=== PATIENT | male | born 1925 | race African-American/Black ===

== ENCOUNTER 2016-11-17 14:49 | Inpatient (IN) ==
--- NOTE | 2016-11-17 16:44 | Emergency Department Note ---
Disposition Clinical Impression: Heart block AV second degree Disposition: Admitted As Inpatient Condition: Good Recheck wound or abnormal lab - General Chief Complaint: ED Recheck/Abnormal Lab/Rx Stated Complaint: recheck Time Seen by Provider: 11/17/16 15:08 Source: patient, EMS Limitations: no limitations Nursing Notes Reviewed: Yes Vital Signs Reviewed: Yes - History of Present Illness HPI Narrative: Patient comes complaint of abnormal Holter monitor. Per report patient also monitor place due to dizziness. [facility] episodes of complete heart block. Patient of the currently denies any symptoms. Patient denies shortness of breath denies chest pain. Patient denies vision changes associated with this. Patient denies numbness or tingling. Patient states he feels well like to go home. - Related Data Home Medications Medication Instructions Recorded Confirmed Alendronate Sodium [Fosamax] 70 mg PO QWEEK 11/17/16 11/17/16 Capsaicin 0.025% [Trixaicin] 1 appl TP BID 11/17/16 11/17/16 Cholecalciferol (Vitamin D3) 1,000 unit PO DAILY 11/17/16 11/17/16 [Vitamin D] Naproxen [Naprosyn] 500 mg PO BID 11/17/16 11/17/16 Allergies Allergy/AdvReac Type Severity Reaction Status Date / Time Penicillins [PCN] Allergy Unknown Swelling Verified 12/08/15 11:31 of Lip/Tongue/Throat All systems ED: reviewed and negative except as stated. Past Medical History - Past Medical History Source: patient Medical history: Reports: cancer, CVA, hypertension, seizures Psychiatric history: Reports: no psych history - Social History Smoking Status: Current every day smoker Smokeless Tobacco Status: No Alcohol use: Reports: occasionally Drug use: Reports: none Physical Exam - General Limitations: no limitations General appearance: alert, in no apparent distress - Head Head exam: atraumatic, normocephalic, normal inspection - Eye Eye exam: Present: normal appearance, PERRL, EOMI - ENT ENT exam: normal exam, normal oropharynx, mucous membranes moist - Neck Neck exam: Present: normal inspection, full ROM, trachea midline - Chest Chest inspection: Present: normal inspection, symmetric chest wall rise - Respiratory Respiratory exam: Present: normal lung sounds bilaterally - Cardiovascular Cardiovascular exam: Present: regular rate, normal rhythm, normal heart sounds - Abdominal Exam Abdominal exam: Present: soft, Non-Tender. Absent: tenderness, distention, guarding, rebound, rigidity - Extremities Exam Extremities exam: Present: normal inspection, full ROM. Absent: tenderness, pedal edema - Back Exam Back exam: Present: normal inspection, full ROM. Absent: tenderness - Neurological Exam Neurological exam: Present: alert, oriented X3 - Psychiatric Psychiatric exam: Present: normal affect, normal mood - Skin Skin exam: Present: warm, dry, intact, normal color Course Vital Signs Temperature 98.1 F 11/17/16 14:56 Pulse Rate 78 11/17/16 14:56 Respiratory Rate 16 11/17/16 14:56 Blood Pressure 171/117 11/17/16 14:56 O2 Sat by Pulse Oximetry 100 11/17/16 14:56 Temperature 98.1 F 11/17/16 14:56 Pulse Rate 56 11/17/16 18:00 Respiratory Rate 16 11/17/16 18:00 Blood Pressure 138/74 11/17/16 18:00 O2 Sat by Pulse Oximetry 100 11/17/16 18:00 Oxygen Delivery Oxygen Delivery Room Air Recheck wound or abnormal lab - Lab Data Lab results reviewed: Yes I reviewed the patient's lab results. Result diagrams: 11/17/16 16:41 11/17/16 16:41 Lab Results 11/17/16 11/17/16 11/17/16 Range/Units 16:41 16:41 16:41 WBC 10.4 (4.3-11.1) K/mcL RBC 4.84 (4.19-5.50) M/mcL Hgb 13.8 (12.9-16.9) g/dL Hct 42.6 (37.5-50.1) % MCV 88.0 (83.0-100.0) fL MCH 28.5 (28.0-33.3) pg MCHC 32.4 (31.6-35.5) g/dL RDW 14.0 (11.5-14.5) % Plt Count 215 (140-400) K/mcL MPV 11.1 (9.4-12.4) fL Immature Gran % 0.2 (0-4) % Seg Neutrophils % 57.5 % Lymphocytes % 29.5 % Monocytes % 9.8 % Eosinophils % 2.3 % Basophils % 0.7 % Neutrophils # 6.0 (1.6-8.9) K/mcL Lymphocytes # 3.1 (0.6-4.6) K/mcL Monocytes # 1.0 (0.0-1.3) K/mcL Eosinophils # 0.2 (0.0-0.6) K/mcL Basophils # 0.1 (0.0-0.2) K/mcL APTT 32.7 (26.0-36.0) Seconds Sodium 140 (136-145) mEq/L Potassium 4.2 (3.5-4.5) mEq/L Chloride 107 (98-109) mEq/L Carbon Dioxide 24 (19-29) mEq/L BUN 14 (8-26) mg/dL Creatinine 1.17 (0.72-1.25) mg/dL Est GFR ( Amer) > 60 (> 60) Est GFR (Non-Af Amer) 59 L (> 60) BUN/Creatinine Ratio 12 (6-26) Glucose 103 H (70-99) mg/dL Calculated Osmolality 291 (280-300) Calcium 9.7 (8.6-10.8) mg/dL Total Bilirubin 0.6 (0.2-1.2) mg/dL AST 20 (5-34) Units/L ALT 16 (0-55) Units/L Alkaline Phosphatase 91 (38-126) Units/L Troponin I (0-0.03) ng/mL Serum Total Protein 7.7 (6.0-8.3) g/dL Albumin 3.9 (3.5-5.0) g/dL Globulin 3.8 H (2.4-3.5) g/dL Albumin/Globulin Ratio 1.0 L (1.1-2.2) 11/17/16 Range/Units 16:41 WBC (4.3-11.1) K/mcL RBC (4.19-5.50) M/mcL Hgb (12.9-16.9) g/dL Hct (37.5-50.1) % MCV (83.0-100.0) fL MCH (28.0-33.3) pg MCHC (31.6-35.5) g/dL RDW (11.5-14.5) % Plt Count (140-400) K/mcL MPV (9.4-12.4) fL Immature Gran % (0-4) % Seg Neutrophils % % Lymphocytes % % Monocytes % % Eosinophils % % Basophils % % Neutrophils # (1.6-8.9) K/mcL Lymphocytes # (0.6-4.6) K/mcL Monocytes # (0.0-1.3) K/mcL Eosinophils # (0.0-0.6) K/mcL Basophils # (0.0-0.2) K/mcL APTT (26.0-36.0) Seconds Sodium (136-145) mEq/L Potassium (3.5-4.5) mEq/L Chloride (98-109) mEq/L Carbon Dioxide (19-29) mEq/L BUN (8-26) mg/dL Creatinine (0.72-1.25) mg/dL Est GFR ( Amer) (> 60) Est GFR (Non-Af Amer) (> 60) BUN/Creatinine Ratio (6-26) Glucose (70-99) mg/dL Calculated Osmolality (280-300) Calcium (8.6-10.8) mg/dL Total Bilirubin (0.2-1.2) mg/dL AST (5-34) Units/L ALT (0-55) Units/L Alkaline Phosphatase (38-126) Units/L Troponin I 0.01 (0-0.03) ng/mL Serum Total Protein (6.0-8.3) g/dL Albumin (3.5-5.0) g/dL Globulin (2.4-3.5) g/dL Albumin/Globulin Ratio (1.1-2.2) - Radiology Data Radiology results reviewed: Yes I reviewed the patient's radiology results. Chest X-Ray 11/17/16 15:31 IMPRESSION: 1. Lower lung volumes with bibasilar atelectasis. 2. Stable cardiomegaly. D/ / 11/17/2016 16:47:23 Shireen Jerry MD / ander Interpreting Provider: Shireen Jerry MD - EKG Data EKG attestation: Yes I reviewed and interpreted this EKG. EKG results narrative: Mobitz II, Type II Critical Care Time Total Critical Care Time: 30 Attestation: Chest X-Ray 11/17/16 15:31
[2016-11-17 16:59] LABS: Basophils # 0.1 K/mcL (0.0-0.2); Basophils % 0.7 %; Eosinophils # 0.2 K/mcL (0.0-0.6); Eosinophils % 2.3 %; Hematocrit 42.6 % (37.5-50.1); Hemoglobin 13.8 g/dL (12.9-16.9); Immature Granulocytes % 0.2 % (0-4); Lymphocytes # 3.1 K/mcL (0.6-4.6); Lymphocytes % 29.5 %; Mean Corpuscular HGB Conc 32.4 g/dL (31.6-35.5); Mean Corpuscular Hemoglobin 28.5 pg (28.0-33.3); Mean Platelet Volume 11.1 fL (9.4-12.4); Monocytes % 9.8 %; Platelet Count 215 K/mcL (140-400); Red Blood Count 4.84 M/mcL (4.19-5.50); Segmented Neutrophils % 57.5 %
[2016-11-17 17:06] LABS: Alanine Aminotransferase 16 Units/L (0-55); Albumin 3.9 g/dL (3.5-5.0); Alkaline Phosphatase 91 Units/L (38-126); Aspartate Amino Transferase 20 Units/L (5-34); BUN/Creatinine Ratio 12 (6-26); Bilirubin,Total 0.6 mg/dL (0.2-1.2); Blood Urea Nitrogen 14 mg/dL (8-26); Calcium 9.7 mg/dL (8.6-10.8); Carbon Dioxide 24 mEq/L (19-29); Chloride 107 mEq/L (98-109); Globulin 3.8 g/dL (2.4-3.5); Glucose 103 mg/dL (70-99); Osmolality,Calculated 291 (280-300); Potassium 4.2 mEq/L (3.5-4.5); Sodium 140 mEq/L (136-145); Total Protein 7.7 g/dL (6.0-8.3); eGFR For African Americans > 60 (> 60); eGFR For Non-African Americans 59 (> 60)
[2016-11-17 19:43] LABS: Bilirubin,Urine Negative (Negative); Blood,Urine Negative (Negative); Clarity,Urine Clear (Clear); Color,Urine Yellow (Yellow); Glucose,Urine (UA) Normal (Normal); Ketones,Urine Negative (Negative); Leukocyte Esterase,Urine Negative (Negative); Nitrite,Urine Negative (Negative); Protein,Urine Negative (Neg-Trace); Specific Gravity,Urine 1.015 (1.010-1.025); Urobilinogen,Urine Normal (Normal)
[2016-11-17] MEDS ORDERED: *HR* Promethazine 25 MG/ML VIAL IVP PRN (20:02)
[2016-11-17] MEDS ORDERED: Naloxone 0.4 MG/ML INJ IVP PRN (20:02)
[2016-11-17] MEDS ORDERED: MOM Conc 10 ML UD.LIQ PO PRN (20:02)
[2016-11-17] MEDS ORDERED: *HR* OxyCODONE Immed Rel 5 MG TABLET PO PRN (20:02)
[2016-11-17] MEDS ORDERED: *HR* Enoxaparin 30 MG/0.3 ML SYRINGE SQ STA (20:02)
[2016-11-17] MEDS ORDERED: Mag Hydrox/Al Hydrox/Simeth 30 ML UDC PO PRN (20:02)
[2016-11-17] MEDS ORDERED: *HR* Morphine 2 MG/ML SYRINGE IVP PRN (20:02)
[2016-11-17] MEDS ORDERED: Acetaminophen 325 MG TABLET PO PRN (20:02)
[2016-11-17] MEDS ORDERED: Albuterol 2.5 MG/3 ML NEBULIZER IH PRN (20:09)
[2016-11-17] MEDS ORDERED: *HR* Metoprolol 5 MG/5 ML VIAL IVP PRN (20:09)
[2016-11-17] MEDS ORDERED: Aspirin 81 MG TAB.CHEW PO ONE (20:09)
[2016-11-17] MEDS ORDERED: Nitroglycerin 0.4 MG TAB.SUBL SL PRN (20:09)
[2016-11-17] MEDS ORDERED: 0.9 % Sodium Chloride 1,000 ML IVC SCH (20:15)
[2016-11-17] MEDS ORDERED: Benzonatate 100 MG CAPSULE PO PRN (20:16)
--- NOTE | 2016-11-17 20:21 | Internal Med History&Physical ---
Date of Encounter: 11/17/16 Time of Encounter: 20:00 Assessment and Plan (1) Mobitz type II atrioventricular block Current visit: Yes Status: Acute . (2) Pre-syncope Current visit: Yes Status: Acute . (3) Old cerebrovascular accident (CVA) without late effect Current visit: Yes Status: Chronic . (4) History of seizures Current visit: Yes Status: Chronic . (5) Hypertension Current visit: Yes Status: Chronic . Qualifiers: Hypertension type: essential hypertension Qualified Code(s): I10 - Essential (primary) hypertension (6) Nicotine dependence with nicotine-induced disorder Current visit: Yes Status: Chronic . Qualifiers: Nicotine product type: cigarettes Qualified Code(s): F17.219 - Nicotine dependence, cigarettes, with unspecified nicotine-induced disorders (7) Hypertension, accelerated with heart disease, without CHF Current visit: Yes Status: Acute . (8) Heart block AV second degree Current visit: Yes Status: Acute . (9) Dyslipidemia Current visit: Yes Status: Chronic . (10) Mild cognitive disorder Current visit: Yes Status: Chronic . (11) Age-related physical debility Current visit: Yes Status: Chronic . (12) CAD (coronary artery disease) Current visit: Yes Status: Chronic . Qualifiers: Coronary Disease-Associated Artery/Lesion type: [place] artery [place] vs. transplanted heart: [place] heart Associated angina: with stable angina Qualified Code(s): I25.118 - Atherosclerotic heart disease of [place] coronary artery with other forms of angina pectoris Internal Medicine - H&P: HPI Chief complaint: Presyncope. Abnormal Holter monitor. Admitted From: Emergency Dept Plans for Post Hospital Care: Home History of present illness: Mr. De La Cruz is a 89 year old male [facility] patient with history significant for old CVA, CAD, hypertension, hyperlipidemia, osteoarthritis, osteoporosis, vitamin D deficiency, H/O seizure disorder, H/O traumatic brain injury/LOC, DDD of the spine/low back pain, hemorrhoidal disease, chr constipation/obstipation, paroxysmal arrhythmias unspecified/ AV block second-degree, H/O TIAs, cognitive disorder unspecified, nicotine dependency The patient was visited and interviewed and examined. The patient is admitted to [facility] via the emergency department as a referral from the [facility]. The patient arrives via EMS services from home at the AL's request. The patient had recently underwent Holter monitor evaluation for unspecified paroxysmal arrhythmias associated with presyncopal complaints. The event Holter monitor captured 28 episodes of "complete heart block"/atrioventricular block. Sinus pauses lasting a total of 4 minutes was captured. Heart rates as low as 29 bpm also captured. This was defined to be Mobitz type II atrioventricular block and impending, potential complete heart block. Patient denied any symptoms during the period of Holter study. He denied chest pain syncopal or presyncopal platelets perceived bradycardia or or palpitations or irregular heartbeats PND orthopnea or edema. He denied any upper respiratory complaints cough, shortness severe dyspnea at rest or with exertion. He denied any acute changes in vision slurring of speech lateral weakness paresthesias operation in the status or mood. Denies any ongoing cardiovascular medications denies any recreational sedatives or excesses and dietary stimulants or therapies.. Findings in the ED: Temperature 98.1 pulse 56-78 respirations 16 BP 138-171/74-117 O2 saturation 100% room air. WBC 10.4 hemoglobin 13.8 platelets 215,000. Differential normal. PTT 32.7. Metabolic panel normal. BUN 14 creatinine 1.17 GFR 59. Glucose 103 osmolality 291. Troponin 0.01. EKG Mobitz type II atrioventricular block. Sinus bradycardia at a rate of 54 bpm. Markedly left axis deviation. Possible age-indeterminate anterior wall injury with poor R-wave progression. Chest x-ray demonstrates low lung volumes with bibasilar atelectasis. Stable enlargement of the cardiomediastinal silhouette. Cardiomegaly. No focal consolidation or pleural effusion edema or pneumothorax. Degenerative changes throughout the spine noted. Preliminary impression suggests symptomatic, cardiac arrhythmias found to be Mobitz type II atrioventricular block with associated episodes of sinus pauses worrisome for impending complete heart block, as captured on event Holter monitor. The patient presents increased risk for further acute clinical decline and morbidity given his advanced age, presenting chief complaint, clinical findings and comorbidities. Workup and treatments will proceed comprehensively. Cumulative laboratory and radiographic data base was reviewed, considered and discussed. Pertinent ancillary medical records including [facility], PCI and [facility] documentation, when available, was reviewed and considered. Given the patient's presenting concerns, past medical history, clinical findings and symptoms, he is admitted at this time will undergo further evaluation and disposition. Orders were written as per the computerized physician eating disorder psychologist system.......................................................................... .................... Consultative opinion and will be sought as clinical circumstances justify. Initial consultative opinion has been requested with cardiology. Pain management needs will be addressed. Laboratory and radiographic data base will be updated as appropriate. Studies include: trending of cardiac injury panels, BNP, metabolic and hematologic panel , magnesium, phosphorus, ionized calcium, thyroid panel, lipid profile, A1c, C- peptide, CRP, sedimentation rate, blood gas, UDS, coagulation profiles, U/A, lactic acid, serologies, etc. Precautions: Aspiration, fall, delirium protocol/surveillance initiated. Telemetry with continuous hemodynamic monitoring and pulse oximetry initiated. Orthostatic vital signs. Intravenous dopamine drip for maintenance of controlled heart rate rate and blood pressure pending formal cardiology interventions. Special studies: CT chest, chest x-ray, telemetry, EKG, echocardiogram. Pulmonary toilet: Incentive spirometry, aerosol bronchodilator, mucolytic, antitussive, supplemental oxygen. When necessary corticosteroid therapy. When necessary CPAP/BiPAP supplemental oxygen delivery. Aerosol Mucom[place] therapy may be employed. Fluid and electrolyte repletion efforts will proceed. Careful attention to fluid balance and renal recovery will be emphasized. Avoidance of nephrotoxic exposure and adverse drug drug interaction in the setting of impaired renal function will be monitored closely. Correction of metabolic and acid-base deficits will be emphasized. Acute coronary syndrome protocol/surveillance initiated. DVT and PUD prophylaxis initiated: PPI therapy, intermittent pneumatic cuffs. Subcutaneous heparin/Lovenox. Early ambulation will be encouraged. Immunization updates recommended. Influenza and pneumococcal vaccinations as part of ongoing preventative healthcare recommendations strongly recommended. Smoking cessation counseling briefly addressed. Patient accepts nicotine substitution during this hospitalization. Advanced care directive discussion briefly addressed. Patient does not declare any healthcare restrictions at this time. Cardiovascular risk appraisal and cardiovascular risk reduction efforts will be emphasized. Physical and occupational therapy may be counseled to evaluate/assess patient's functional capacity and progress mobility if circumstances justify. Outpatient medication schedules will be reviewed, confirmed and facilitated as appropriate. Reconciliation of home treatments including adjustments, substitutions and reintroduction into the treatment regimen will address necessary maintenance therapies for chronic pre-existing medical conditions. Plan of care has been reviewed and discussed in detail with the patient. Questions addressed. Hospital course is dependent upon collective clinical findings, treatment response and potential consultative interventions. Patient is at risk for further acute clinical decline and debility due to his advanced age, presenting chief complaint, clinical findings and comorbid conditions. Condition is serious. Prognosis is cautiously optimistic. CODE STATUS is full. Past Med Surg Social Fam HX - Past Medical History Source: old records reviewed Medical history: arthritis, atrial fibrillation (Paroxysmal arrhythmia unspecified. Second-degree atrioventricular block.), cancer, coronary artery disease, CVA, dementia (Cognitive disorder unspecified.), hyperlipidemia, hypertension, osteoporosis (Degenerative disc disease of the spine. Intravertebral disc disease of the spine/back pain.), seizures, TIA, other ( Plantar fasciitis fibromatosis. Congenital pes planus. Hearing loss.) Psychiatric history: no psych history - Past Surgical History Surgical History: other - Social History Smoking Status: Current every day smoker Smokeless Tobacco Status: No Alcohol use: occasionally Drug use: none Activity Level: Independent ambulation, Mostly sedentary Recent Out of Country Travel Within the Last 8 Weeks: No Exposure or Possible Exposure to Illness During Travel: No - Family History Father Living Status: Age at : 80 Cause of : Heart Attack Hx Family Cardiac Disorders: Yes (Heart attack) Hx Family Respiratory Disorders: No Hx Family Cancer: No Hx Family GI Disorders: No Hx Family Genitourinary Disorders: No Hx Family Endocrine Disorder: No Hx Family Musculoskeletal Disorders: No Hx Family Neuromuscular Disorders: No Hx Family Neurologic Disorders: No Hx Family HEENT Disorders: No Hx Family Autoimmune Disorders: No Hx Family Reproductive Disorders: No Hx Family Psychosocial Disorders: No Hx Family Medical Disorders: No Internal Medicine - H&P: Meds Alendronate Sodium [Fosamax] 70 mg PO QWEEK 11/17/16 [History] Capsaicin 0.025% [Trixaicin] 1 appl TP BID 11/17/16 [History] Cholecalciferol (Vitamin D3) [Vitamin D] 1,000 unit PO DAILY 11/17/16 [History] Naproxen [Naprosyn] 500 mg PO BID 11/17/16 [History] Allergies Penicillins [PCN] Allergy (Unknown, Verified 12/08/15 11:31) Swelling of Lip/Tongue/Throat All Systems PM: A 10-system review of systems was performed and is negative for pertinent findings except as documented above in the HPI. - Constitutional Constitutional: as per HPI, falls, no chills, no fever(s), no night sweats - EENT Eyes: as per HPI, no change in vision, no discharge, no pain, no photophobia Ears: as per HPI, no ear discharge, no ear pain, no tinnitus Nose, mouth and throat: as per HPI, no dysphagia, no nasal discharge, no neck pain, no sore throat - Cardiovascular Cardiovascular ROS IM: as per HPI, irregular heart rhythm, syncope, no chest pain, no diaphoresis, no dyspnea, no edema, no lightheadedness, no palpitations - Respiratory Respiratory: as per HPI, dyspnea, dyspnea on exertion, no cough, no wheezing, no excessive phlegm production - Gastrointestinal Gastrointestinal: as per HPI, no abdominal pain, no diarrhea, no hematemesis, no hematochezia, no melena, no nausea, no vomiting - Genitourinary Genitourinary ROS male: as per HPI, no difficulty urinating, no dysuria, no hematuria - Musculoskeletal Musculoskeletal ROS IM: as per HPI, no numbness, no tingling - Integumentary Integumentary IM: as per HPI, no rash, no unusual bruising - Neurological Neurological ROS: as per HPI, dizziness, frequent falls, other, no confusion, no convulsions, no focal weakness, no numbness, no tingling, no tremor(s) - Psychiatric Psychiatric: as per HPI - Endocrine Endocrine IM: as per HPI - Hematologic/Lymphatic Hematologic/Lymphatic: as per HPI, no easy bruising - Allergic/Immunologic Allergic/Immunologic: as per HPI - Constitutional Vitals: Temp Pulse Resp BP Pulse Ox 98.1 F 56 18 113/67 100 11/17/16 14:56 11/17/16 18:00 11/17/16 19:01 11/17/16 19:01 11/17/16 18:00 General appearance: Present: cooperative, mild distress, A&O X 3, pleasant, answers questions appropriately - Head Head exam: Present: atraumatic, normal inspection, normocephalic - Eye Eye exam: Present: EOMI, PERRL, conjuntiva pink, sclera anicteric Pupils: Present: normal accommodation, PERRL - ENT ENT exam: Present: mucous membranes moist, normal external ear exam, normal oropharynx - Neck Neck exam general surgery: Present: full ROM, supple, trachea midline. Absent: lymphadenopathy, tenderness, nuchal rigidity - Respiratory Respiratory exam: Present: decreased breath sounds, CTAB. Absent: accessory muscle use, rales, rhonchi, wheezes - Cardiovascular Cardiovascular exam: Present: bradycardia, distant heart sounds, irregular rhythm, +S1, +S2. Absent: diastolic murmur, gallop, rubs, systolic murmur - GI/Abdominal GI/Abdominal exam: Present: normal bowel sounds, soft, no peritoneal signs. Absent: distended, tenderness - Extremities Exam Extremities exam: Present: full ROM, warm, radial pulses palpable and symetrical. Absent: calf tenderness, cyanotic, pedal edema - Neurological Exam Neurological exam: Present: alert, CN II-XII intact, oriented X3, no focal deficits. Absent: pronater drift, facial droop, speech deficit - Expanded Neurological Exam Neurological exam expanded: Present: protecting the airway. Absent: ataxia, expressive aphasia, receptive aphasia Patient oriented to: Present: person, place, time Speech: Present: fluid speech Coma Scale Eye Opening: Spontaneous Coma Scale Motor Response: Obeys Commands Coma Scale Verbal Response: Oriented Coma Scale Total: 15 - Psychiatric Psychiatric exam: Present: normal affect, normal mood - Skin Skin exam: Present: dry, intact, warm. Absent: petechiae, rash, urticaria, vesicles Internal Med - H&P Results - Labs CBC & Chem 7: 11/17/16 16:41 11/17/16 16:41 Labs: Urine 11/17/16 Range/Units 19:25 Urine Color Yellow (Yellow) Urine Clarity Clear (Clear) Urine pH 6.0 (5.0-8.0) pH Units Ur Specific [place] 1.015 (1.010-1.025) Urine Protein Negative (Neg-Trace) mg/dL Urine Glucose (UA) Normal (Normal) mg/dL - Impressions Vital Signs Temp Pulse Resp BP Pulse Ox 11/17/16 19:01 18 113/67 11/17/16 18:00 56 16 138/74 100 11/17/16 17:00 60 16 132/79 100 11/17/16 16:00 56 16 149/83 100 11/17/16 14:56 98.1 F 78 16 171/117 100 Intake and Output 11/17/16 11/17/16 11/17/16 07:59 15:59 23:59 Other: Weight 88.451 kg Patient Weight 11/17/16 23:59 Weight 88.451 kg Short CBC 11/17/16 Range/Units 16:41 WBC 10.4 (4.3-11.1) K/mcL Hgb 13.8 (12.9-16.9) g/dL Hct 42.6 (37.5-50.1) % Plt Count 215 (140-400) K/mcL Neutrophils # 6.0 (1.6-8.9) K/mcL BMP 11/17/16 Range/Units 16:41 Sodium 140 (136-145) mEq/L Potassium 4.2 (3.5-4.5) mEq/L Chloride 107 (98-109) mEq/L Carbon Dioxide 24 (19-29) mEq/L BUN 14 (8-26) mg/dL Creatinine 1.17 (0.72-1.25) mg/dL Glucose 103 H (70-99) mg/dL Calcium 9.7 (8.6-10.8) mg/dL Cardiac Enzymes 11/17/16 Range/Units 16:41 Troponin I 0.01 (0-0.03) ng/mL Liver Function 11/17/16 Range/Units 16:41 Total Bilirubin 0.6 (0.2-1.2) mg/dL AST 20 (5-34) Units/L ALT 16 (0-55) Units/L Alkaline Phosphatase 91 (38-126) Units/L Albumin 3.9 (3.5-5.0) g/dL Urine 11/17/16 Range/Units 19:25 Urine Color Yellow (Yellow) Urine Clarity Clear (Clear) Urine pH 6.0 (5.0-8.0) pH Units Ur Specific [place] 1.015 (1.010-1.025) Urine Protein Negative (Neg-Trace) mg/dL Urine Glucose (UA) Normal (Normal) mg/dL Abnormal lab results Est GFR (Non-Af Amer) 59 (> 60) L 11/17/16 16:41 Glucose 103 mg/dL (70-99) H 11/17/16 16:41 Globulin 3.8 g/dL (2.4-3.5) H 11/17/16 16:41 Albumin/Globulin Ratio 1.0 (1.1-2.2) L 11/17/16 16:41 Allergies Allergy/AdvReac Type Severity Reaction Status Date / Time Penicillins [PCN] Allergy Unknown Swelling Verified 12/08/15 11:31 of Lip/Tongue/Throat Laboratory Results WBC 10.4 K/mcL (4.3-11.1) 11/17/16 16:41 RBC 4.84 M/mcL (4.19-5.50) 11/17/16 16:41 Hgb 13.8 g/dL (12.9-16.9) 11/17/16 16:41 Hct 42.6 % (37.5-50.1) 11/17/16 16:41 MCV 88.0 fL (83.0-100.0) 11/17/16 16:41 MCH 28.5 pg (28.0-33.3) 11/17/16 16:41 MCHC 32.4 g/dL (31.6-35.5) 11/17/16 16:41 RDW 14.0 % (11.5-14.5) 11/17/16 16:41 Plt Count 215 K/mcL (140-400) 11/17/16 16:41 MPV 11.1 fL (9.4-12.4) 11/17/16 16:41 Immature Gran % 0.2 % (0-4) 11/17/16 16:41 Seg Neutrophils % 57.5 % 11/17/16 16:41 Lymphocytes % 29.5 % 11/17/16 16:41 Monocytes % 9.8 % 11/17/16 16:41 Eosinophils % 2.3 % 11/17/16 16:41 Basophils % 0.7 % 11/17/16 16:41 Neutrophils # 6.0 K/mcL (1.6-8.9) 11/17/16 16:41 Lymphocytes # 3.1 K/mcL (0.6-4.6) 11/17/16 16:41 Monocytes # 1.0 K/mcL (0.0-1.3) 11/17/16 16:41 Eosinophils # 0.2 K/mcL (0.0-0.6) 11/17/16 16:41 Basophils # 0.1 K/mcL (0.0-0.2) 11/17/16 16:41 APTT 32.7 Seconds (26.0-36.0) 11/17/16 16:41 Sodium 140 mEq/L (136-145) 11/17/16 16:41 Potassium 4.2 mEq/L (3.5-4.5) 11/17/16 16:41 Chloride 107 mEq/L (98-109) 11/17/16 16:41 Carbon Dioxide 24 mEq/L (19-29) 11/17/16 16:41 BUN 14 mg/dL (8-26) 11/17/16 16:41 Creatinine 1.17 mg/dL (0.72-1.25) 11/17/16 16:41 Est GFR ( Amer) > 60 (> 60) 11/17/16 16:41 Est GFR (Non-Af Amer) 59 (> 60) L 11/17/16 16:41 BUN/Creatinine Ratio 12 (6-26) 11/17/16 16:41 Glucose 103 mg/dL (70-99) H 11/17/16 16:41 Calculated Osmolality 291 (280-300) 11/17/16 16:41 Calcium 9.7 mg/dL (8.6-10.8) 11/17/16 16:41 Total Bilirubin 0.6 mg/dL (0.2-1.2) 11/17/16 16:41 AST 20 Units/L (5-34) 11/17/16 16:41 ALT 16 Units/L (0-55) 11/17/16 16:41 Alkaline Phosphatase 91 Units/L (38-126) 11/17/16 16:41 Troponin I 0.01 ng/mL (0-0.03) 11/17/16 16:41 Serum Total Protein 7.7 g/dL (6.0-8.3) 11/17/16 16:41 Albumin 3.9 g/dL (3.5-5.0) 11/17/16 16:41 Globulin 3.8 g/dL (2.4-3.5) H 11/17/16 16:41 Albumin/Globulin Ratio 1.0 (1.1-2.2) L 11/17/16 16:41 Urine Color Yellow (Yellow) 11/17/16 19:25 Urine Clarity Clear (Clear) 11/17/16 19:25 Urine pH 6.0 pH Units (5.0-8.0) 11/17/16 19:25 Ur Specific [place] 1.015 (1.010-1.025) 11/17/16 19:25 Urine Protein Negative mg/dL (Neg-Trace) 11/17/16 19:25 Urine Glucose (UA) Normal mg/dL (Normal) 11/17/16 19:25 Urine Ketones Negative mg/dL (Negative) 11/17/16 19:25 Urine Blood Negative (Negative) 11/17/16 19:25 Urine Nitrite Negative (Negative) 11/17/16 19:25 Urine Bilirubin Negative (Negative) 11/17/16 19:25 Urine Urobilinogen Normal mg/dL (Normal) 11/17/16 19:25 Ur Leukocyte Esterase Negative (Negative) 11/17/16 19:25 Ur Culture Indicated? NO (NO) 11/17/16 19:25 Impressions Chest X-Ray 11/17/16 15:31 IMPRESSION: 1. Lower lung volumes with bibasilar atelectasis. 2. Stable cardiomegaly. D/ / 11/17/2016 16:47:23 Shireen Jerry MD / ander Interpreting Provider: Shireen Jerry MD
[2016-11-17 20:47] LABS: VBG HCO3 30.4 mEq/L (21-27); VBG PH 7.35 pH Units (7.32-7.42)
[2016-11-17] MEDS: Nicotine 21 MG PATCH.TD24 TD SCH (23:00)
[2016-11-17] MEDS: Ipratropium/Albuterol Neb 3 ML IH SCH (23:46)
[2016-11-18] MEDS: *HR* Enoxaparin 40 MG/0.4 ML SYRINGE SQ STA ×2 (02:01→02:03)
[2016-11-18] MEDS: Ipratropium/Albuterol Neb 3 ML IH SCH ×2 (04:13→09:58)
[2016-11-18] MEDS: *HR* Enoxaparin 40 MG/0.4 ML SYRINGE SQ SCH (06:17)
[2016-11-18 07:26] LABS: INR 1.3; Prothrombin Time 13.7 Seconds (9.4-12.1)
[2016-11-18 07:27] LABS: Hemoglobin A1C 5.6 %
[2016-11-18 07:36] LABS: Chol/HDL Ratio 5.4 (0-4.9); Magnesium 1.8 mg/dL (1.6-2.6); Phosphorous 3.1 mg/dL (2.3-4.7)
[2016-11-18] MEDS: Nicotine 21 MG PATCH.TD24 TD SCH (08:10)
[2016-11-18] MEDS: Aspirin 81 MG TAB.CHEW PO SCH (08:10)
--- NOTE | 2016-11-18 09:42 | Internal Med Progress Note ---
<Valerie Marroquin - Last Filed: 11/18/16 15:42> Date of Encounter: 11/18/16 Time of Encounter: 09:05 - Assessment and plan (1) Heart block AV second degree Current Visit: Yes Status: Acute Assessment and plan: Evidenced on EKG, bradycardia with 2* type II AVB Symptomatic with reported prior syncopal episodes in the past Echo ordered, await report. Not on home BB/CCB. Cardiology service consulted, patient is candidate for pacemaker. Appreciate cardiology following. (2) Hypertension Current Visit: Yes Status: Chronic Assessment and plan: Currently controlled. HOLDING any AV amado blocking agents in light of 2* AVB per above. Qualifiers: Hypertension type: essential hypertension Qualified Code(s): I10 - Essential (primary) hypertension (3) Smoker Current Visit: Yes Status: Acute Assessment and plan: Counseled on smoking cessation, agreeable to NRT (4) DVT prophylaxis Current Visit: Yes Status: Acute Assessment and plan: Lovenox 40mg SC QD - Subjective Interval history: Patient seen/eval, first encounter. 89 yoM [facility], presents from [place] with Holter monitor 28 episodes AV block. PMH PAF, CAD, CVA, Dementia, HTN, HLD, Hearing loss, smoker Cardiology on board. Patient has vague recollection of PMH and events prompting hospitalization. He is very pleasant, conversational, and talks about his favorite foods. He does affirm sensation of skipped beats, no dizziness/lightheaded, no chest pain/ pressure. - Constitutional Vitals: Temp Pulse Resp BP Pulse Ox 97.6 F 66 17 121/53 92 L 11/18/16 06:57 11/18/16 06:57 11/18/16 06:57 11/18/16 06:57 11/18/16 06:57 General appearance: Present: cooperative, A&O X 3, pleasant, answers questions appropriately - Head Head exam: Present: atraumatic, normocephalic - Eye Eye exam: Present: EOMI, sclera anicteric - ENT ENT exam: Present: mucous membranes moist - Neck Neck exam general surgery: Present: supple, trachea midline - Respiratory Respiratory exam: Absent: rales, respiratory distress, rhonchi, tachypnea - Cardiovascular Cardiovascular exam: Present: +S1, +S2. Absent: distant heart sounds, JVD - GI/Abdominal GI/Abdominal exam: Present: soft, no peritoneal signs. Absent: tenderness - Extremities Exam Extremities exam: Present: warm, radial pulses palpable and symetrical. Absent : pedal edema Internal Medicine: Result - Labs CBC & Chem 7: 11/17/16 16:41 11/17/16 16:41 Labs: Urine 11/17/16 Range/Units 19:25 Urine Color Yellow (Yellow) Urine Clarity Clear (Clear) Urine pH 6.0 (5.0-8.0) pH Units Ur Specific [place] 1.015 (1.010-1.025) Urine Protein Negative (Neg-Trace) mg/dL Urine Glucose (UA) Normal (Normal) mg/dL - ABG Interpretation ABG results: PT/INR, D-dimer PT 13.7 Seconds (9.4-12.1) H 11/18/16 06:26 - VTE Documentation of Mechanical Device: Intermittent pneumatic compression device Consult Discharge Plan - Plan [facility] Care Provider[facility] - <Len Gomez - Last Filed: 11/18/16 19:20> - Time Spent With Patient I examined this patient and my medical decision-making was reviewed with the Resident Physician, Dr. Marroquin. I agree with the documented findings, disposition and treatment plan as described except to the extent set forth below. My review of EKGs from yesterday reveal Mobitz 2 heart block and a separate EKG complete heart block with junctional rhythm. On exam his heart is irregular and bradycardic clicks murmurs or gallops. Plan: Monitor on telemetry. Follow-up with cardiology. Follow-up echocardiogram. For pacemaker placement in the morning. - Constitutional Vitals: Temp Pulse Resp BP Pulse Ox 99.0 F 62 16 117/61 100 11/18/16 16:08 11/18/16 18:56 11/18/16 16:08 11/18/16 18:56 11/18/16 18:56 Internal Medicine: Result - Labs CBC & Chem 7: 11/17/16 16:41 11/17/16 16:41 Labs: Cardiac Enzymes 11/18/16 Range/Units 10:05 Troponin I 0.02 (0-0.03) ng/mL Urine 11/17/16 11/18/16 Range/Units 19:25 12:14 Urine Color Yellow Yellow (Yellow) Urine Clarity Clear Clear (Clear) Urine pH 6.0 6.0 (5.0-8.0) pH Units Ur Specific [place] 1.015 1.014 (1.010-1.025) Urine Protein Negative Negative (Neg-Trace) mg/dL Urine Glucose (UA) Normal Normal (Normal) mg/dL - ABG Interpretation ABG results: PT/INR, D-dimer PT 13.7 Seconds (9.4-12.1) H 11/18/16 06:26 - Impressions Impressions Chest X-Ray 11/18/16 18:07 IMPRESSION: Sequelae of left pacemaker placement pneumothorax or acute cardiopulmonary process identified. D/ / Reggie Garrido MD / Reggie Garrido MD Interpreting Provider: Reggie Garrido MD
--- NOTE | 2016-11-18 10:22 | Cardiology Consult Note ---
Date of Encounter: 11/18/16 Time of Encounter: 10:00 Assessment and Plan (1) Heart block AV second degree Current Visit: Yes Status: Acute Per Cardiology: Patient sent to [facility] ED d/t Type II AV block on event monitor. Request records to obtain event monitor report from [facility]. Telemetry reviewed, episodes of second degree AV block seen. Started on Dopamine by primary service. He is asymptomatic upon exam; however reports x2 syncopal episodes at home within the past month and dyspnea with exertion. Check echocardiogram. TSH within normal limits; patient was not on AV amado blocking agents at home. He will likely need a PPM, will discuss with EP, Dr. Dominik Lopez. (2) CAD (coronary artery disease) Current Visit: Yes Status: Chronic Reports hx of CAD s/p PCI--most recent [facility] 2007 per [facility] report. [facility] Denies chest pain or discomfort. No ischemic ECG changes noted. Reports episode of chest pain >1 month ago. Troponon negative. Echocardiogram pending. Continue asa and statin. No betablocker secondary to AV block. Qualifiers: Coronary Disease-Associated Artery/Lesion type: habematolel artery [place] vs. transplanted heart: habematolel heart Associated angina: with stable angina Qualified Code(s): I25.118 - Atherosclerotic heart disease of habematolel coronary artery with other forms of angina pectoris (3) Hypertension Current Visit: Yes Status: Chronic Controlled. Qualifiers: Hypertension type: essential hypertension Qualified Code(s): I10 - Essential (primary) hypertension Discussion w patient/family: The assessment and plan as outlined above was discussed with the patient and/or family members who expressed understanding and agreement. All questions were answered. Thank you for involving us in the care of your patient. Please call with any questions. The patient will be discussed and reviewed with Dr. Alonso; changes to be made accordingly. History of Present Illness Consult date: 11/18/16 Requesting physician: Jadon Graham Consult reason: 2:1 AV Block Chief complaint: Shortness of breath History of present illness: Mr. De La Cruz is a 89 year old male with reported history of CAD s/p PCI, HTN, HLD, CVA who presented to the ED after instructed by [facility] physician due to abnormal holter monitor recording. He states holter monitor initially applied due to chest pain. He reports admission at [facility] in [place] this past September, he was told at that time he needed a pacemaker; it is unclear to why PPM was not implanted; however he was reported discharged with an event monitor. Reports 2 syncopal episodes in the past 2 months, reports dyspnea upon exertion. Past Med Surg Social Fam HX - Past Medical History Medical history: arthritis, atrial fibrillation (Paroxysmal arrhythmia unspecified. Second-degree atrioventricular block.), cancer, coronary artery disease, CVA, dementia (Cognitive disorder unspecified.), hyperlipidemia, hypertension, osteoporosis (Degenerative disc disease of the spine. Intravertebral disc disease of the spine/back pain.), seizures, TIA, other ( Plantar fasciitis fibromatosis. Congenital pes planus. Hearing loss.) Psychiatric history: no psych history - Past Surgical History Surgical History: other - Social History Smoking Status: Current every day smoker Smokeless Tobacco Status: No Alcohol use: occasionally Drug use: none - Family History Father Living Status: Age at : 80 Cause of : Heart Attack Hx Family Cardiac Disorders: Yes (Heart attack) Hx Family Respiratory Disorders: No Hx Family Cancer: No Hx Family GI Disorders: No Hx Family Genitourinary Disorders: No Hx Family Endocrine Disorder: No Hx Family Musculoskeletal Disorders: No Hx Family Neuromuscular Disorders: No Hx Family Neurologic Disorders: No Hx Family HEENT Disorders: No Hx Family Autoimmune Disorders: No Hx Family Reproductive Disorders: No Hx Family Psychosocial Disorders: No Hx Family Medical Disorders: No Medications and Allergies Alendronate Sodium [Fosamax] 70 mg PO QWEEK 11/17/16 [History] Capsaicin 0.025% [Trixaicin] 1 appl TP BID 11/17/16 [History] Cholecalciferol (Vitamin D3) [Vitamin D] 1,000 unit PO DAILY 11/17/16 [History] Naproxen [Naprosyn] 500 mg PO BID 11/17/16 [History] Allergies Penicillins [PCN] Allergy (Unknown, Verified 12/08/15 11:31) Swelling of Lip/Tongue/Throat All Systems Review: A 10-system review of systems was performed and is negative for pertinent findings except as documented above in the HPI. - Cardiovascular Cardiovascular: as per HPI Physical Examination Vital Signs, Last 4 Hours Temp Pulse Resp BP Pulse Ox 11/18/16 09:58 14 100 11/18/16 06:57 97.6 F 66 17 121/53 92 L General: Conversant, No Apparent Distress HEENT: Atraumatic, Normocephaly Cardiac: Reg Rate and Rhythm, Normal S1 and S2 Lungs: Normal Breath Sounds Neuro: Alert and responsive Abdomen: Soft Skin: No rashes noted on visualized skin Musculoskeletal: No Chest Wall Tenderness Extremities: No Edema, Normal Pulses Results 11/17/16 16:41 11/17/16 16:41 Lab Results 11/18/16 11/18/16 11/18/16 06:26 06:26 06:26 INR 1.3 Magnesium 1.8 TSH 0.796 Active Medications Acetaminophen (Tylenol) 650 mg PO Q6HR PRN PRN Reason: Mild Pain (1-3) Stop: 05/19/17 20:03 Al Hydrox/Mg Hydrox/Simethicone (Maalox) 15 ml PO Q6HR PRN PRN Reason: Dyspepsia Stop: 05/19/17 20:03 Albuterol Sulfate (Proventil Neb) 2.5 mg IH Q2H PRN PRN Reason: Shortness Of Breath/Wheezing Stop: 05/19/17 20:10 Albuterol/Ipratropium (Duoneb) 3 ml IH QIDR [facility] Stop: 05/19/17 23:01 Last Admin: 11/18/16 09:58 Dose: 3 ml Aspirin (Aspirin) 81 mg PO DAILY [facility] Stop: 05/20/17 09:01 Last Admin: 11/18/16 08:10 Dose: 81 mg Atorvastatin Calcium (Lipitor) 40 mg PO HS [facility] Stop: 05/19/17 21:01 Last Admin: 11/17/16 22:53 Dose: 40 mg Benzonatate (Tessalon) 200 mg PO TID PRN PRN Reason: Cough Stop: 05/19/17 20:17 Docusate Sodium (Colace) 100 mg PO BID [facility] Stop: 05/19/17 21:01 Last Admin: 11/18/16 08:10 Dose: 100 mg Enoxaparin Sodium (Lovenox) 40 mg SQ 0600 LILA PRN Reason: Protocol Stop: 05/20/17 06:01 Last Admin: 11/18/16 06:17 Dose: 40 mg Guaifenesin (Mucinex) 600 mg PO BID [facility] Stop: 05/19/17 21:01 Last Admin: 11/18/16 08:11 Dose: 600 mg Sodium Chloride (0.9 % Sodium Chloride) 1,000 mls @ 50 mls/hr IVC .Q20H LILA Stop: 05/19/17 20:16 Last Admin: 11/17/16 22:45 Dose: 50 mls/hr Dopamine HCl/Dextrose (Dopamine Premix (400mg/250ml D5w)) 400 mg in 250 mls @ 16.031 mls/hr IVC .[id number] LILA PRN Reason: 5 MCG/KG/MIN Stop: 05/20/17 01:31 Last Admin: 11/18/16 03:36 Dose: 5 mcg/kg/min, 16.031 mls/hr Magnesium Hydroxide (Milk Of Magnesia Conc) 10 ml PO DAILY PRN PRN Reason: Indigestion Stop: 05/19/17 20:03 Metoprolol Tartrate (Lopressor) 5 mg IVP Q6HR PRN PRN Reason: SEE COMMENTS Stop: 05/19/17 20:10 Morphine Sulfate (Morphine Sulfate) 2 mg IVP Q4HR PRN PRN Reason: Severe Pain (7-10) Stop: 05/19/17 20:03 Naloxone HCl (Narcan) 0.4 mg IVP Q2MIN PRN PRN Reason: Opioid Reversal Stop: 05/19/17 20:03 Nicotine (Nicoderm) 21 mg TD DAILY [facility] PRN Reason: Protocol Stop: 05/19/17 20:16 Last Admin: 11/18/16 08:10 Dose: 21 mg Nitroglycerin (Nitroglycerin) 0.4 mg SL Q5MIN PRN PRN Reason: Chest Pain Stop: 05/19/17 20:10 Omeprazole (Prilosec) 20 mg PO DAILY@0630 [facility] PRN Reason: Protocol Stop: 05/20/17 06:31 Last Admin: 11/18/16 06:17 Dose: 20 mg Oxycodone HCl (Roxicodone) 10 mg PO Q6HR PRN PRN Reason: Moderate Pain (4-6) Stop: 05/19/17 20:03 Promethazine HCl (Phenergan) 12.5 mg IVP Q6HR PRN PRN Reason: Nausea And Vomiting Stop: 05/19/17 20:03 - Imaging and Cardiology Echo: pending Other Results: Telemetry reviewed. - EKG Interpretation EKG results cardiology: personally reviewed Consult Discharge Plan - Plan [facility] [Primary Care Provider] -
[2016-11-18] MEDS ORDERED: Clindamycin 900 MG/50 ML 900 MG/50 ML IV.SOLN IVPB ONE (11:46)
[2016-11-18 12:18] LABS: Bilirubin,Urine Negative (Negative); Blood,Urine Moderate (Negative); Clarity,Urine Clear (Clear); Color,Urine Yellow (Yellow); Glucose,Urine (UA) Normal (Normal); Ketones,Urine Negative (Negative); Leukocyte Esterase,Urine Negative (Negative); Nitrite,Urine Negative (Negative); Protein,Urine Negative (Neg-Trace); Specific Gravity,Urine 1.014 (1.010-1.025); Urobilinogen,Urine Normal (Normal)
[2016-11-18 12:20] LABS: Bacteria,Urine None Seen per hpf (None-Few); Hyaline Casts,Urine None Seen per lpf (None-Few); RBC,Urine 30-50 per hpf (0-3); Squamous Epithelial Cell,Urine Few per lpf (None-Few); WBC,Urine 0-3 per hpf (0-3)
[2016-11-18] MEDS ORDERED: Ipratropium/Albuterol Neb 3 ML IH PRN (12:37)
--- NOTE | 2016-11-18 16:32 | ECHO - Doppler Report ---
Echocardiogram Name: Edward De La Cruz Date of Study: 11/18/2016 Date: 1925 Ht: 72.0 in Medical Record#: [id number] Age: 89 Wt: 217.0 lb Gender: Male BSA: 2.21 Order #: [id number] Location: [facility] Room #: 2A23 Reading Physician: Jayshree Carbajal DO Forest Worker: Matias Rucker Ordering Physician: Jessika Sanches CNP Primary Physician: [facility] Indications: Arrhythmia Impressions: LVEF 60%. Normal left ventricular size and systolic function. There is evidence of moderate diastolic dysfunction of the left ventricle. Normal RV function. Mild tricuspid regurgitation. No pulmonary hypertension. Left Ventricular Wall Motion: Rest Echo Findings All wall segments showed normal motion. Findings: Study Quality * Technically sub-optimal due to body habitus. ECG Findings * Normal sinus rhythm with first degree AVB. Left Ventricle * LVEF 60%. * Normal LV chamber size, wall thickness and function. * Moderate left ventricular diastolic dysfunction. Left Atrium * Normal left atrial size. Mitral Valve * Normal mitral valve structure. * No mitral regurgitation. * No mitral stenosis. Tricuspid Valve * Normal tricuspid valve structure. * Mild tricuspid regurgitation. * Estimated RA pressure is 3 mmHg. * Estimated RVSP is 26 mmHg. * No pulmonary hypertension. Pulmonic Valve * Pulmonic valve is not well visualized. * No pulmonic stenosis. * Trace pulmonic regurgitation. Pulmonary Artery * Pulmonary artery not well visualized. Aortic Valve * Trileaflet aortic valve. * Mildly calcified aortic valve leaflets. * No aortic stenosis. * No aortic stenosis. Right Ventricle * Normal RV function. Images are off axis. Size cannot be well estimated. Right Atrium * Normal right atrial size. Interatrial Septum * No evidence of PFO by color Doppler. IVC * Normal IVC dimensions and inspiratory collapse. History Hypertension Hypercholesteremia Family History of CAD History of CAD/PTCA Myocardial Infarction Measurements: BP: 119/ 52 2D Normal Values IVSd: 1.20 cm 0.6 - 1.0 cm LVIDd: 5.26 cm 3.7 - 5.6 cm LVPWd: 1.17 cm 0.6 - 1.1 cm LVIDs: 3.00 cm 1.5 - 3.6 cm AO: 3.00 cm < 4.0 cm LA: 3.60 cm 2.0 - 4.0cm %FS: 43.00 cm >25 % LA volume: 49 Mitral Valve Peak E:.92 m/sec Peak A:.74 m/sec E/A Ratio:1.2 Peak E' Lat Nehemias:6.64 cm/s Peak E' Med Nehemias:6.85 cm/s E/E' Lat Ratio:13.8 E/E' Med Ratio:13.4 Tricuspid Valve TV Regurg Peak Grad: 23.00mmHg TV Regurg Peak Nehemias: 2.39m/sec Updated by Jayshree Carbajal on 11/18/2016 4:25:40 PM electronically signed on 11/18/2016 4:26:19 PM with status of Final Wall Motion [place]: 1=Normal, 2=Hypokinesis, 3=Akinesis, 4=Dyskinesis, 5=Aneurysmal, 6=Hyperkinetic, X=Not Visualized (Blank)=Missing
[2016-11-18] MEDS ORDERED: *HR* Midazolam HCl 2 MG/2 ML VIAL ONE (17:14)
[2016-11-18] MEDS ORDERED: 0.9 % Sodium Chloride 500 ML ONE (17:15)
[2016-11-18] MEDS ORDERED: Clindamycin 600 MG/50 ML 1,200 MG/100 ML IV.SOLN IVPB ONE (17:15)
[2016-11-18] MEDS ORDERED: *HR* FentaNYL (PF) 100 MCG/2 ML VIAL ONE (17:15)
--- NOTE | 2016-11-18 17:21 | Electrocardiograph Report ---
[facility] Test Date: 2016-11-17 Pat Name: Edward De La Cruz Department: 104 Room: 2A23 Gender: M Assembly Supervisor: INDIGO : 1925 Requested By: Charli Shaffer Order Number: [id number] Reading MD: Hazel Lopez Measurements Intervals [place] Rate: 54 P: MN: 0 QRS: -52 QRSD: 110 T: 1 QT: 406 QTc: 392 Interpretive Statements SINUS BRADYCARDIA WITH 2ND DEGREE AV BLOCK, MOBITZ TYPE I with blocked PACs MARKED LEFT AXIS DEVIATION POSSIBLE ANTERIOR MYOCARDIAL INFARCTION, OF INDETERMINATE AGE Electronically Signed On 11-18-16 17:20:34 EST by Hazel Lopez
--- NOTE | 2016-11-18 17:23 | Electrocardiograph Report ---
[facility] Test Date: 2016-11-18 Pat Name: Edward De La Cruz Department: 112 Room: 2A23 Gender: M Medical Billing Clerk: [id number] : 1925 Requested By: Valerie Marroquin Order Number: [id number] Reading MD: Hazel Lopez Measurements Intervals [place] Rate: 56 P: [place]: 0 QRS: -58 QRSD: 101 T: 12 QT: 399 QTc: 392 Interpretive Statements SINUS BRADYCARDIA WITH 2ND DEGREE AV BLOCK, MOBITZ TYPE I, with blocked PACs LEFT ANTERIOR FASCICULAR BLOCK POSSIBLE ANTERIOR MYOCARDIAL INFARCTION, PROBABLY OLD Electronically Signed On 11-18-16 17:21:28 EST by Hazel Lopez
--- NOTE | 2016-11-18 18:19 | Invasive Diagnostic Lab ---
Dual Chamber Pacemaker Insertion Name: Edward De La Cruz Date of Study: 11/18/2016 Date: 1925 Ht: 182.9 cm / 72.0 in Medical Record#: [id number] Age: 89 Wt: 99.1 kg / 218.5 lb Gender: Male BSA: 2.21 Location: Fluoro Dose: 158 mGy BMI: 29.62 Performing MD: Dominik Lopez MD, [facility] Procedures Performed: Procedure PM INSERTION DUAL LEADS Indications: Description Sinus Node Dysfunction Impressions: * Successful implant of dual chamber pacemaker generator. Degree of difficulty was moderate. Appropriate functionality was observed at the end of the case. Procedure completed without incident. Recommendations: The patient will follow-up in 4-6 weeks for a post-pacemaker interrogation and evaluation with their Rim Roller Setter. Procedure Description: After informed consent was obtained, the patient was brought to the laboratory in the fasting, post absorptive state. The left subclavicular region was prepped and draped in sterile fashion. Local anesthesia was performed using 1% Lidocaine. A 4cm incision was created two fingerbreadths below and parallel to the clavicle and carried down to the prepectoral fascia. At that level, a pocket was created to accomodate and size the hardware. This portion of the procedure used sharp dissection, blunt dissection and electrocautery. Venous access was obtained using a dual axillary vein stick with the modified Seldinger technique using two 7 Fr. Safe sheaths. The right ventricular lead was manipulated under direct fluoroscopy to find a physically stable and electrically optimal location in the RV [place]. Next, the right atrial lead was placed and again manipulated under direct fluoroscopy to find a physically stable electrically optimal location in the RA appendage. Hemostasis was obtained. The pocket was copiously irrigated with antibiotic solution. The device was connected to the leads in standard fashion and set screws deployed. The device was placed in the pocket. No anchoring sutures were placed. The wound was closed in layers starting with 2-0 Vicryl for the deep layer and 4-0 Vicryl for the skin. Steri-Strips were placed and 4x4s secured with tape. The patient tolerated the procedure well. Complications: None Disposition: The patient was returned to the recovery room. Patient will be scheduled to have a follow-up wound check in one week here at [facility]. PPM Device Information: Insurance Account Assistant Model Name Model No. Serial No. medtronic Dale[place] MRI [id number] [id number] PPM Lead(s) Information: Insurance Account Assistant Model Name Model No. Serial No. Placement medtronic 5076-58cm [id number] RV medtronic 5076-52cm [id number] RA Device Measurement Data: Sensing (mV) Threshold (V) / (msec) Impedance (Ohms) Atrial Lead 4.1 0.3 / 0.5 1008 RV Lead 8 0.5 / 0.5 750 LV Lead Device Settings: MODE: DDDR Lower Rate: 60 bpm FAYE Delay: 180 msec Upper Rate: 120 bpm PAV Delay: 150 msec Procedure Medications: Time Medication Dose Unit Route 05:13 PM Oxygen 2 L/min nasal cannula 05:13 PM Clindamycin 900 mg Intravenous 05:18 PM Versed 1 Mg Intravenous 05:18 PM Fentanyl 25 Mcg Intravenous 05:27 PM Lidocaine 2% 7 mL Subcutaneous 05:28 PM Lidocaine 2% 4 mL Subcutaneous Contrast: Isovue 0 ml. Complications: No complications occurred during the procedure. Complication None Updated by Dominik Lopez MD, FACC on 11/18/2016 6:11:39 PM electronically signed on 11/18/2016 6:14:09 PM with status of Final
[2016-11-19] MEDS: *HR* Enoxaparin 40 MG/0.4 ML SYRINGE SQ SCH (05:13)
[2016-11-19] MEDS ORDERED: Clindamycin 900 MG/50 ML 900 MG/50 ML IV.SOLN IVPB SCH (06:00)
[2016-11-19 06:45] LABS: Basophils # 0.1 K/mcL (0.0-0.2); Basophils % 0.4 %; Eosinophils # 0.2 K/mcL (0.0-0.6); Eosinophils % 1.8 %; Hematocrit 39.6 % (37.5-50.1); Hemoglobin 12.8 g/dL (12.9-16.9); Immature Granulocytes % 0.4 % (0-4); Lymphocytes % 18.1 %; Mean Corpuscular HGB Conc 32.3 g/dL (31.6-35.5); Mean Corpuscular Hemoglobin 28.1 pg (28.0-33.3); Mean Corpuscular Volume 86.8 fL (83.0-100.0); Mean Platelet Volume 11.6 fL (9.4-12.4); Monocytes # 1.4 K/mcL (0.0-1.3); Monocytes % 12.4 %; Neutrophils # 7.5 K/mcL (1.6-8.9); Platelet Count 174 K/mcL (140-400); Red Blood Count 4.56 M/mcL (4.19-5.50); Red Cell Distribution Width 14.1 % (11.5-14.5); Segmented Neutrophils % 66.9 %
[2016-11-19 06:59] LABS: BUN/Creatinine Ratio 11 (6-26); Blood Urea Nitrogen 10 mg/dL (8-26); Carbon Dioxide 18 mEq/L (19-29); Chloride 109 mEq/L (98-109); Glucose 104 mg/dL (70-99); Magnesium 2.1 mg/dL (1.6-2.6); Osmolality,Calculated 287 (280-300); Potassium 4.1 mEq/L (3.5-4.5); Sodium 139 mEq/L (136-145); eGFR For African Americans > 60 (> 60); eGFR For Non-African Americans > 60 (> 60)
[2016-11-19] MEDS: Nicotine 21 MG PATCH.TD24 TD SCH (07:59)
[2016-11-19] MEDS: Aspirin 81 MG TAB.CHEW PO SCH (07:59)
--- NOTE | 2016-11-19 09:48 | Cardiology Progress Note ---
Date of Encounter: 11/19/16 Time of Encounter: 10:00 Assessment and Plan (1) Heart block AV second degree Current Visit: Yes Status: Acute Per Cardiology: Patient sent to [facility] ED d/t Type II AV block on event monitor. Telemetry reviewed, episodes of second degree AV block seen. Started on Dopamine by primary service. He was asymptomatic upon exam; however reports x2 syncopal episodes at home within the past month and dyspnea with exertion. TSH within normal limits; patient was not on AV amado blocking agents at home. TTE: EF 60%, mild TR, normal wall motion. Dual chamber PPM implant on 11/18/16. CXR s/p procedure yesterday evening and again this AM stable without pneumothorax. Device check completed this morning showed normal functioning PPM, 99.9% paced. Denies events overnight, denies recurrent dizziness/lightheadedness upon standing. Left upper chest wall PPM site stable. Restrictions regarding post PPM implant instructions discussed including care of site. Follow-up with [facility] and Dr. Dominik Lopez as scheduled. (2) CAD (coronary artery disease) Current Visit: Yes Status: Chronic Reports hx of CAD s/p PCI--most recent [facility] 2007 [facility] report. [facility] Denies chest pain or discomfort. No ischemic ECG changes noted. Reports episode of chest pain >1 month ago. Troponon negative. Echocardiogram pending. Continue asa and statin. Low dose betablocker added this AM for improved BP control. Qualifiers: Coronary Disease-Associated Artery/Lesion type: hoh artery [place] vs. transplanted heart: hoh heart Associated angina: with stable angina Qualified Code(s): I25.118 - Atherosclerotic heart disease of hoh coronary artery with other forms of angina pectoris (3) Hypertension Current Visit: Yes Status: Chronic Low dose betablocker added for improved BP control this AM. Qualifiers: Hypertension type: essential hypertension Qualified Code(s): I10 - Essential (primary) hypertension Discussion w patient/family: The assessment and plan as outlined above was discussed with the patient and/or family members who expressed understanding and agreement. All questions were answered. Thank you for involving us in the care of your patient. Please call with any questions. The patient will be discussed and reviewed with Dr. Alonso; changes to be made accordingly. Objective Vital Signs, Last 4 Hours Temp Pulse Resp BP Pulse Ox 11/19/16 07:04 98.2 F 69 16 160/75 95 Results 11/19/16 05:40 11/19/16 05:40 Lab Results 11/18/16 11/19/16 11/19/16 10:05 05:40 05:40 WBC 11.3 H Hgb 12.8 L Hct 39.6 Plt Count 174 Sodium 139 Potassium 4.1 Chloride 109 Carbon Dioxide 18 L BUN 10 Creatinine 0.87 Glucose 104 H Calcium 9.0 Magnesium 2.1 Troponin I 0.02 Active Medications Acetaminophen (Tylenol) 650 mg PO Q6HR PRN PRN Reason: Mild Pain (1-3) Stop: 05/19/17 20:03 Al Hydrox/Mg Hydrox/Simethicone (Maalox) 15 ml PO Q6HR PRN PRN Reason: Dyspepsia Stop: 05/19/17 20:03 Albuterol/Ipratropium (Duoneb) 3 ml IH Q4HR PRN PRN Reason: Shortness Of Breath/Wheezing Stop: 05/20/17 16:01 Aspirin (Aspirin) 81 mg PO DAILY [facility] Stop: 05/20/17 09:01 Last Admin: 11/19/16 07:59 Dose: 81 mg Atorvastatin Calcium (Lipitor) 40 mg PO HS [facility]IL[facility] Stop: 05/19/17 21:01 Last Admin: 11/18/16 20:03 Dose: 40 mg Benzonatate (Tessalon) 200 mg PO TID PRN PRN Reason: Cough Stop: 05/19/17 20:17 Calcium Carbonate (Tums) 1,000 mg PO Q4HR PRN; Protocol PRN Reason: Heartburn Stop: 05/20/17 12:39 Docusate Sodium (Colace) 100 mg PO BID [facility] Stop: 05/19/17 21:01 Last Admin: 11/19/16 07:59 Dose: 100 mg Enoxaparin Sodium (Lovenox) 40 mg SQ 0600 LILA PRN Reason: Protocol Stop: 05/20/17 06:01 Last Admin: 11/19/16 05:13 Dose: 40 mg Guaifenesin (Mucinex) 600 mg PO BID [facility] Stop: 05/19/17 21:01 Last Admin: 11/19/16 08:00 Dose: 600 mg Sodium Chloride (0.9 % Sodium Chloride) 1,000 mls @ 50 mls/hr IVC .Q20H [facility] Stop: 05/19/17 20:16 Last Admin: 11/17/16 22:45 Dose: 50 mls/hr Clindamycin Phosphate/Dextrose (Cleocin 900 Mg/50 Ml) 900 mg in 50 mls @ 100 mls/hr IVPB PREOP ONE Last Admin: 11/18/16 15:49 Dose: Not Given Magnesium Hydroxide (Milk Of Magnesia Conc) 10 ml PO DAILY PRN PRN Reason: Indigestion Stop: 05/19/17 20:03 Morphine Sulfate (Morphine Sulfate) 2 mg IVP Q4HR PRN PRN Reason: Severe Pain (7-10) Stop: 05/19/17 20:03 Naloxone HCl (Narcan) 0.4 mg IVP Q2MIN PRN PRN Reason: Opioid Reversal Stop: 05/19/17 20:03 Nicotine (Nicoderm) 21 mg TD DAILY [facility] PRN Reason: Protocol Stop: 05/19/17 20:16 Last Admin: 11/19/16 07:59 Dose: 21 mg Nitroglycerin (Nitroglycerin) 0.4 mg SL Q5MIN PRN PRN Reason: Chest Pain Stop: 05/19/17 20:10 Oxycodone HCl (Roxicodone) 10 mg PO Q6HR PRN PRN Reason: Moderate Pain (4-6) Stop: 05/19/17 20:03 Promethazine HCl (Phenergan) 12.5 mg IVP Q6HR PRN PRN Reason: Nausea And Vomiting Stop: 05/19/17 20:03 Impressions Chest X-Ray 11/18/16 18:07 IMPRESSION: Sequelae of left pacemaker placement pneumothorax or acute cardiopulmonary process identified. D/ / Reggie Garrido MD / Reggie Garrido MD Interpreting Provider: Reggie Garrido MD Chest X-Ray 11/19/16 06:00 IMPRESSION: No pneumothorax status post pacemaker placement. The bi-lead ventricular wires are seen in the region of the right atrium and ventricle. Bibasilar atelectasis. D/ / Bassem Corea MD / Bassem Corea MD Interpreting Provider: Bassem Corea MD - Imaging and Cardiology Echo: report reviewed Other Results: 12 hour tele: avg HR=65 - EKG Interpretation EKG results cardiology: personally reviewed - VTE Documentation of Mechanical Device: Intermittent pneumatic compression device Consult Discharge Plan - Plan Additional Instructions: ACTIVITY: Moderate activity for the next 7 days. No lifting more than 5 pounds ( gallon of milk) for 4-6 weeks. Avoid lifting your arm on the same side as the device for 4 weeks. BATHING /SHOWERING: Do not remove the large bandage over the site for 2 days. Do not allow the device to get wet for 7-10 days. You may bathe/shower, but do not use soap and water on the site. When bathing, keep the site dry by covering with Saran wrap or a towel. WOUND CARE: The white steri-strips will start to peel away and come off after 14 days, or your doctor will remove them after [address] anything into or on top of the incision. Do not use cotton swabs. Do not use any antibiotic ointment or Vitamin E on the site. REMINDERS: You may use electrical devices, such as, microwaves, hair dryers, electric razors, electric blankets, etc. as long as they are in good condition and kept 6 -8 inches away from the device. It is recommended to use cell phones on the opposite side of your device. Notify security personnel at the airport that you have a device before you go through airport security screening. When at places with security monitors, such as a grocery store, do not linger near these monitors. It is fine to walk past them in a normal manner. Refer to your owners manual for more specific directions. CARRY YOUR PACEMAKER/ICD CARD WITH YOU AT ALL TIMES Return to work as instructed per physician Resume driving as instructed per physician Keep all scheduled follow up appointments Resume medications as instructed Contact [facility] ( ) if: You develop excessive bleeding from insertion or wound site not controlled by applying pressure You develop a fever greater than 101 degrees Fahrenheit Your incision becomes reddened at or around the site Your incision develops yellowish or greenish drainage or development of white pimple-like bumps You experience excessive pain You develop swelling in your ankles You experience muscle switching You develop excessive hiccupping If you experience chest pain, shortness of breath, dizziness, or extreme tiredness, stop the activity and rest. Please notify [facility] office if you experience any of these symptoms and they are not relieved by rest please call 911! [facility]errals: [facility] [Primary Care Provider] - Dominik Lopez MD [Partnered Physician] - ([facility] ([facility] office): 11/27/16 at 11:30 am for wound check [facility]: 12/26/16 at 9:30 AM for device check [address]John Lopez: 02/27/17 at 9:00 AM for routine follow-up )
--- NOTE | 2016-11-19 10:25 | Discharge Summary ---
<Valerie Marroquin - Last Filed: 11/19/16 15:14> Date of Encounter: 11/19/16 Time of Encounter: 10:00 - Discharge Diagnosis (1) Heart block AV second degree Priority: Primary Status: Acute (2) Hypertension Priority: Primary Status: Chronic Qualifiers: Hypertension type: essential hypertension Qualified Code(s): I10 - Essential (primary) hypertension (3) Smoker Priority: Primary Status: Chronic (4) DVT prophylaxis Priority: Secondary Status: Acute - Discharge Medications Prescriptions: Nitroglycerin 0.4 mg SL Q5MIN PRN #20 tab.subl PRN Reason: Chest Pain Aspirin 81 mg PO DAILY #30 tab.chew Atorvastatin [Lipitor] 40 mg PO HS #30 tablet Metoprolol [Lopressor] 12.5 mg PO BID #30 tablet Nicotine Patch [Nicoderm] 21 mg TD DAILY #30 patch.td24 Home Medications: Alendronate Sodium [Fosamax] 70 mg PO QWEEK 11/17/16 [History] Capsaicin 0.025% [Trixaicin] 1 appl TP BID 11/17/16 [History] Cholecalciferol (Vitamin D3) [Vitamin D3] 1,000 unit PO DAILY 11/17/16 [History] Naproxen [Naprosyn] 500 mg PO BID 11/17/16 [History] Aspirin 81 mg PO DAILY #30 tab.chew 11/19/16 [Rx] Atorvastatin [Lipitor] 40 mg PO HS #30 tablet 11/19/16 [Rx] Metoprolol [Lopressor] 12.5 mg PO BID #30 tablet 11/19/16 [Rx] Nicotine Patch [Nicoderm] 21 mg TD DAILY #30 patch.td24 11/19/16 [Rx] Nitroglycerin 0.4 mg SL Q5MIN PRN #20 tab.subl 11/19/16 [Rx] Allergies/Adverse Reactions: Allergies Penicillins [PCN] Allergy (Unknown, Verified 12/08/15 11:31) Swelling of Lip/Tongue/Throat Procedures/tests Complete & Pending: Procedures Performed prior 72 hours Category Date Time Status CL Insert Permanent Pacemaker [CL] Routine [employer] 11/18/16 11:45 Completed ECG 12 lead ECG [ECG] Routine Y 11/18/16 07:00 Ordered EKG [ECG 12 lead ECG] [ECG] Stat Y 11/18/16 11:42 Completed EV echocardiogram Routine Y 11/18/16 20:10 Completed Date of admission: 11/17/16 18:24 Primary care physician: PCP SACHI Consults: 11/17/16 20:10 Consult to Nurse Navigator [CONS] Routine Comment: Consult to Nurse Navigator [CONS] Routine Comment: 11/18/16 08:00 Consult to Cardiology [CONS] Routine Comment: Consulting Provider: Cardiology Kathy Reason for Consult: Mobitz type II heart block captured on 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 Please evaluate and advise Call Completed: No 11/19/16 09:14 Consult to Occupational Therapy [CONS] Routine Comment: Evaluate, develop and implement POC Consult to Physical Therapy [CONS] Routine Comment: Evaluate, develop and implement POC Discharging clinician: Len Gomez Anticipated date of discharge: 11/19/16 - Patient Status Disposition: Home, Self-Care Condition: Good Functional capacity at discharge: independent ambulation Overall status at discharge: patient is progressing back to baseline - Discharge Instructions Instructions: Metoprolol (By mouth), Aspirin (By mouth), Nicotine (Absorbed through the skin), Nitroglycerin, Rapid Release (By mouth), Atorvastatin (By mouth) Follow Up With: Dominik Lopez MD [Partnered Physician] - ([facility] ([facility] office): 11/27/16 at 11:30 am for wound check [facility]: 12/26/16 at 9:30 [address] for device [address]John Lopez: 02/27/17 at 9:00 AM for routine follow-up ) [place],PCP [Primary Care Provider] - Additional Instructions: ACTIVITY: Moderate activity for the next 7 days. No lifting more than 5 pounds ( gallon of milk) for 4-6 weeks. Avoid lifting your arm on the same side as the device for 4 weeks. BATHING /SHOWERING: Do not remove the large bandage over the site for 2 days. Do not allow the device to get wet for 7-10 days. You may bathe/shower, but do not use soap and water on the site. When bathing, keep the site dry by covering with Saran wrap or a towel. WOUND CARE: The white steri-strips will start to peel away and come off after 14 days, or your doctor will remove them after [address] into or on top of the incision. Do not use cotton swabs. Do not use any antibiotic ointment or Vitamin E on the site. REMINDERS: You may use electrical devices, such as, microwaves, hair dryers, electric razors, electric blankets, etc. as long as they are in good condition and kept 6 -8 inches away from the device. It is recommended to use cell phones on the opposite side of your device. Notify security personnel at the airport that you have a device before you go through airport security screening. When at places with security monitors, such as a grocery store, do not linger near these monitors. It is fine to walk past them in a normal manner. Refer to your owners manual for more specific directions. CARRY YOUR PACEMAKER/ICD CARD WITH YOU AT ALL TIMES Return to work as instructed per physician Resume driving as instructed per physician Keep all scheduled follow up appointments Resume medications as instructed Contact [facility] ( ) if: You develop excessive bleeding from insertion or wound site not controlled by applying pressure You develop a fever greater than 101 degrees Fahrenheit Your incision becomes reddened at or around the site Your incision develops yellowish or greenish drainage or development of white pimple-like bumps You experience excessive pain You develop swelling in your ankles You experience muscle switching You develop excessive hiccupping If you experience chest pain, shortness of breath, dizziness, or extreme tiredness, stop the activity and rest. Please notify [facility] office if you experience any of these symptoms and they are not relieved by rest please call 911! - Diet and Activity Activity: as per the cardiac rehab Diet: low fat, low cholesterol, low salt diet Hospital course: Mr. De La Cruz is a 89 year old male, [facility] patient, sent from [place] with Holter monitor 28 episodes AV block Patient would present to [facility] with chief concern: skipped beats, lightheadedness. Comorbidities would include: PAF, CAD, CVA, Dementia, HTN, HLD, Hearing loss, smoker. Cardiology consulted for symptomatic 2* AV block, patient appropriate candidate for pacemaker. He underwent successful implantation of dual-chamber pacemaker on 11/18/16. CXR would confirm lead placement. Per Cardiology: TTE: EF 60%, mild TR, normal wall motion. Dual chamber PPM implant on 11/18/16. CXR s/p procedure yesterday evening and again this AM stable without pneumothorax. Device check completed this morning showed normal functioning PPM, 99.9% paced. Restrictions regarding post PPM implant instructions discussed including care of site. Follow-up with [facility] and Dr. Dominik Lopez as scheduled. PT/OT eval sought due to weakness which contributed to falls. Patient was counseled on smoking cessation, offered NRT which he agreed. At time of discharge, patient was clinically improved, hemodynamically stable, progressing to baseline, and agreeable with plan of care. He affirmed no dizziness/lightheaded on standing, no palpitations/pauses. Patient was advised to seek immediate medical attention for any new or worsening symptoms including but not limited to fever, chills, chest pain, chest pressure, dyspnea, cough, abdominal pain, nausea, vomiting, diarrhea, bloody stool, urine and the patient voiced understanding. Patient will follow-up with primary care physician at [facility] - [place] - Time Spent with Patient Total time spent providing and/or coordinating discharge services: Greater than 30 minutes - Constitutional Vitals: Temp Pulse Resp BP Pulse Ox 98.2 F 69 16 160/75 95 11/19/16 07:04 11/19/16 07:04 11/19/16 07:04 11/19/16 07:04 11/19/16 07:04 General appearance: Present: cooperative, A&O X 3, pleasant, answers questions appropriately - Head Head exam: Present: atraumatic, normocephalic - Eye Eye exam: Present: EOMI, sclera anicteric - ENT ENT exam: Present: mucous membranes moist - Neck Neck exam general surgery: Present: supple, trachea midline - Respiratory Respiratory exam: Present: CTAB. Absent: rhonchi, wheezes - Cardiovascular Cardiovascular exam: Present: +S1 (regular, radial pulses synchronous), +S2. Absent: JVD Additional comments: Left PPM, no fluctuance or erythema - GI/Abdominal GI/Abdominal exam: Present: soft, no peritoneal signs. Absent: tenderness - Extremities Exam Extremities exam: Present: warm, radial pulses palpable and symetrical. Absent : pedal edema - Neurological Exam Neurological exam: Absent: facial droop, speech deficit - VTE Documentation of Mechanical Device: Intermittent pneumatic compression device <Len Gomez - Last Filed: 11/19/16 18:06> Procedures/tests Complete & Pending: Procedures Performed prior 72 hours Category Date Time Status CL Insert Permanent Pacemaker [CL] Routine [employer] 11/18/16 11:45 Completed ECG 12 lead ECG [ECG] Routine Y 11/18/16 07:00 Ordered EKG [ECG 12 lead ECG] [ECG] Stat Y 11/18/16 11:42 Completed EV echocardiogram Routine Y 11/18/16 20:10 Completed Date of admission: 11/17/16 18:24 Primary care physician: [facility] Consults: 11/17/16 20:10 Consult to Nurse Navigator [CONS] Routine Comment: Consult to Nurse Navigator [CONS] Routine Comment: 11/18/16 08:00 Consult to Cardiology [CONS] Routine Comment: Consulting Provider: Cardiology Kathy Reason for Consult: Mobitz type II heart block captured on 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 Please evaluate and advise Call Completed: No 11/19/16 09:14 Consult to Occupational Therapy [CONS] Routine Comment: Evaluate, develop and implement POC Consult to Physical Therapy [CONS] Routine Comment: Evaluate, develop and implement POC - Patient Status Functional capacity at discharge: independent ambulation Overall status at discharge: patient is progressing back to baseline - Diet and Activity Activity: as per the cardiac rehab Diet: low fat, low cholesterol, low salt diet Hospital course: Mr. De La Crzu is a 89 year old male - Time Spent with Patient Total time spent providing and/or coordinating discharge services: - Constitutional Vitals: Temp Pulse Resp BP Pulse Ox 98.0 F 65 17 115/69 98 11/19/16 14:59 11/19/16 14:59 11/19/16 14:59 11/19/16 14:59 11/19/16 14:59 - Attending Attestation I examined this patient and my medical decision-making was reviewed with the Resident Physician. I agree with the documented findings, disposition and treatment plan as described except to the extent set forth below. On exam he is in no acute distress heart is regular rhythm S1 and S2 no murmurs rubs or gallops. Plan: Pacemaker site looks intact, chest x-ray shows no complications. Will discharge home follow up with cardiology. Resume home meds.
[2016-11-19 15:01] VITALS: BP 115/69
== END 2016-11-19 17:30 | disposition home or self-care (01) | DRG 244 ==
LOC: EMEROO 14:49 → 2ANU 18:24 → SUATTDRO 18:24 → 2ANU 19:20
PROVIDERS: ADMIT Internal Medicine; ATTEND Internal Medicine